=== PATIENT | male | born 1960 | race Caucasian/White ===

== ENCOUNTER 2019-01-07 18:39 | Emergency (ER) | payer OTHER ==
[2019-01-07 19:01] VITALS: BP 146/98
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
== END 2019-01-07 19:12 | disposition home or self-care (01) ==
LOC: ED 18:39
DX: Z04.1 Encounter for examination and observation following transport accident (principal)
CPT/HCPCS: 99281; 99282